=== PATIENT | female | born 1940 | race Caucasian/White ===

== ENCOUNTER 2016-10-25 10:45 | Outpatient (CLI) | payer MEDICARE ==
[2016-10-25 12:34] LABS: #Eosinphils 0.2 thou/uL (0.0-0.7); #Lymphocytes 0.8 thou/uL (1.20-3.40); #Monocytes 0.4 thou/uL (0.11-0.59); #Neutrophils 3.6 thou/uL (1.40-6.50); %Basophils 0.9 % (0.0-1.0); %Eosinophils 3.2 % (0.0-10.0); %Lymphocytes 16.3 % (21.0-51.0); %Monocytes 8.2 % (0.0-10.0); Hematocrit 34.4 % (36.0-47.0); Mean Platelet Volume 6.8 fL (7.4-10.4); Red Blood Cell (RBC) Count 3.39 mill/uL (4.20-5.40)
[2016-10-25 12:38] LABS: Bilirubin Negative (Negative); Blood, Urine Negative (Negative); Glucose, Urine (Dipstick) Negative (Negative); Ketone, Urine Negative (Negative); Nitrite Negative (Negative); Protein, Urine (Dipstick) Negative (Neg-Trace); Urobilinogen 0.2 mg/dL (0.2-1.0)
[2016-10-25 13:08] LABS: ALT (SGPT) 12 U/L (0-55); AST (SGOT) 14 U/L (5-34); Alkaline Phosphatase 100 U/L (40-150); Anion Gap 17 mmol/L (10-20); BUN (Urea Nitrogen) 33 mg/dL (9.8-20.1); Bilirubin, Total 0.4 mg/dL (0.2-1.2); Calc. Creatinine Clearance 0 mL/min (70-130); Calcium 9.4 mg/dL (7.8-10.44); Carbon Dioxide 24 mmol/L (23-31); Chloride 103 mmol/L (98-107); Estimated GFR-MDRD 52; Globulin 2.8 g/dL (2.4-3.5); LDL Cholesterol, Calculated 73 mg/dL; Protein, Total 6.6 g/dL (5.8-8.1)
== END 2016-10-25 10:46 ==
LOC: NAVSJIPCSP 10:45
PROVIDERS: ATTEND Internal Medicine
DX: C18.9 Malignant neoplasm of colon, unspecified (principal); E78.5 Hyperlipidemia, unspecified; E03.9 Hypothyroidism, unspecified; I10 Essential (primary) hypertension
CPT/HCPCS: 36415; 80053; 80061; 81003; 82378; 84443; 85025

== ENCOUNTER 2017-01-25 08:59 | Outpatient (CLI) | payer MEDICARE ==
--- NOTE | 2017-01-25 10:10 | RAD ---
THREE VIEWS OF THE RIGHT FOOT: COMPARISON: None. HISTORY: Arthritis and right foot pain. FINDINGS: Three views of the right foot show no evidence of acute fracture or dislocation. There may be a sma ll osseous erosion involving the distal metatarsal of the 4th toe. No focal soft tissue swelling is seen. IMPRESSION: Possible erosion involving the distal aspect of the 4th metatarsal. POS: [facility]
--- NOTE | 2017-01-25 10:10 | RAD ---
LEFT KNEE FOUR VIEWS: History: 76-year-old female with left knee pain and history of arthritis. Comparison: 02-04-13 FINDINGS: Tricompartment arthrosis and degenerative changes of the left knee joint without fracture or disloca tion. Stable from prior study 02-04-13. IMPRESSION: Degenerative and osteoarthrosis changes without fracture or dislocation, stable. POS: [facility]
== END 2017-01-25 09:00 | disposition home or self-care (01) ==
LOC: NAV RAD 08:59
PROVIDERS: ATTEND Internal Medicine
DX: M17.12 Unilateral primary osteoarthritis, left knee (principal)

== ENCOUNTER 2017-08-01 14:01 | Outpatient (CLI) | payer MEDICARE ==
--- NOTE | 2017-08-01 16:16 | ULT ---
BILATERAL CAROTID DUPLEX ULTRASOUND: HISTORY: Left carotid bruit. FINDINGS: There is a small amount of plaque formation in the left internal carotid artery. The peak systolic velocity in the right ICA measures 83 cm/s with an end-diastolic velocity of 20 cm/ s and a systolic ratio of 0.99. The peak systolic velocity in the left ICA measures 70 cm/s with an end-diastolic velocity of 17 cm/s and a systolic ratio of 0.92. Flow in both vertebral arteries remains antegrade. IMPRESSION: No evidence of hemodynamically significant stenosis. POS: [facility]
--- NOTE | 2017-08-01 16:58 | CT ---
ABDOMEN CT SCAN WITHOUT IV CONTRAST 08/01/17 HISTORY: 76-year-old female with history of colon cancer and radiation and chemotherapy with progressive liver enzymes. The lung bases are clear. The liver shows no definite metastatic disease although there is some sligh t heterogeneity of liver attenuation. No ductal dilatation. The gallbladder is upper range of normal size. There are some minimally enlarged but overall stable appearing parapancreatic lymph nodes, unch anged from 02/14/16. The pancreas, spleen, adrenal glands are unremarkable as evaluated without IV con trast. Small right renal cyst stable from prior study. No evidence of ascites. The pelvis was not uri luated on this study. No bowel obstruction. IMPRESSION: Limited noncontrast CT examination of the abdomen. No overt liver metastasis on this noncontrast stud y. Minimally enlarged but overall stable parapancreatic lymph nodes. Stable right renal cyst. POS: [facility]
== END 2017-08-01 14:02 | disposition home or self-care (01) ==
LOC: NAV CT 14:01
PROVIDERS: ATTEND Internal Medicine
DX: C18.9 Malignant neoplasm of colon, unspecified (principal); R74.8 Abnormal levels of other serum enzymes; R59.0 Localized enlarged lymph nodes; N28.1 Cyst of kidney, acquired
CPT/HCPCS: 74150; 93880

== ENCOUNTER 2018-05-31 10:17 | Outpatient (CLI) | payer MEDICARE ==
--- NOTE | 2018-05-31 11:20 | RAD ---
RADIOGRAPH LEFT HEEL 2 VIEWS: Date: 05/31/18 HISTORY: Nontraumatic left heel pain. FINDINGS: Boehler's angle is maintained. Calcaneal trabecular lines are preserved. There is a plantar calcaneal enthesophyte. Its distal tip is lucent and slightly indistinct. There is a cluster of small calcifications located a distance of approximately 1 cm superior to the p osterior edge of the calcaneus. IMPRESSION: 1. Plantar calcaneal enthesophyte with possible erosion of its tip. 2. Nonspecific small calcifications at distal Achilles tendon. 3. No fracture identified. POS: [facility]
== END 2018-05-31 10:18 | disposition home or self-care (01) ==
LOC: NAV RAD 10:17
PROVIDERS: ATTEND Nurse Practitioner Adult Health
DX: M79.672 Pain in left foot (principal); M65.862 Other synovitis and tenosynovitis, left lower leg

== ENCOUNTER 2018-09-19 12:42 | Emergency (ER) | payer MEDICARE ==
[2018-09-19] MEDS ORDERED: Morphine 4 MG/ML VIAL ONE (13:07)
[2018-09-19] MEDS ORDERED: Ondansetron PF 4 MG/2 ML Vial ONE (13:07)
[2018-09-19] MEDS ORDERED: Fentanyl 100 MCG/2 ML VIAL ONE (13:12)
--- NOTE | 2018-09-19 13:40 | RAD ---
TWO VIEWS LEFT HUMERUS: History: Fall with left humeral pain. FINDINGS: AP and oblique views of the left humerus demonstrate a transverse partially impacted fracture in the proximal left humeral neck. It is difficult to evaluate for angulation as the lateral view is not rickey quately visualized. IMPRESSION: Acute left proximal humeral fracture. POS: [facility]
== END 2018-09-19 14:15 | disposition home or self-care (01) ==
LOC: NAV ERS 12:42
DX: S42.202A Unspecified fracture of upper end of left humerus, initial encounter for closed fracture (principal); I10 Essential (primary) hypertension; E03.9 Hypothyroidism, unspecified; E78.5 Hyperlipidemia, unspecified; E11.9 Type 2 diabetes mellitus without complications; Z79.899 Other long term (current) drug therapy; Z79.82 Long term (current) use of aspirin; W19.XXXA Unspecified fall, initial encounter
CPT/HCPCS: 96374; 96375; J2270; J2405; J3010

== ENCOUNTER 2019-01-07 14:29 | Outpatient (CLI) | payer MEDICARE ==
--- NOTE | 2019-01-07 14:54 | RAD ---
Exam: XR Knee Rt 4 View STANDARD HISTORY: Right knee pain COMPARISON: None FINDINGS: Mild tricompartment osteophytosis is present. No significant joint space narrowing is appreciated. Th ere is evidence of a small suprapatellar joint effusion which may be physiologic in origin. No acute fracture, dislocation, or other acute osseous abnormality is identified. IMPRESSION: Mild osteoarthritis right knee.
== END 2019-01-07 14:30 | disposition home or self-care (01) ==
LOC: NAV RAD 14:29
PROVIDERS: ATTEND Internal Medicine
DX: M25.561 Pain in right knee (principal); M17.11 Unilateral primary osteoarthritis, right knee

== ENCOUNTER 2019-04-23 06:04 | Emergency (ER) | payer MEDICARE ==
--- NOTE | 2019-04-23 07:34 | RAD ---
Right knee 4 views: HISTORY: Right knee pain FINDINGS: Degenerative changes are present. No fracture, dislocation or bony destruction is identified.
== END 2019-04-23 07:33 | disposition home or self-care (01) ==
LOC: NAV ERS 06:04
DX: S83.91XA Sprain of unspecified site of right knee, initial encounter (principal); M17.11 Unilateral primary osteoarthritis, right knee; E11.9 Type 2 diabetes mellitus without complications; E03.9 Hypothyroidism, unspecified; D50.9 Iron deficiency anemia, unspecified; E78.5 Hyperlipidemia, unspecified; E78.00 Pure hypercholesterolemia, unspecified; I10 Essential (primary) hypertension; Z79.899 Other long term (current) drug therapy; Z79.82 Long term (current) use of aspirin; X58.XXXA Exposure to other specified factors, initial encounter

== ENCOUNTER 2020-02-28 11:57 | Emergency (ER) | payer MEDICARE ==
[2020-02-28] MEDS ORDERED: Acetaminophen/Codeine 30-300mg Tablet ONE (12:51)
== END 2020-02-28 13:01 | disposition home or self-care (01) ==
LOC: NAV ERS 11:57
DX: M54.41 Lumbago with sciatica, right side (principal); E11.9 Type 2 diabetes mellitus without complications; E03.9 Hypothyroidism, unspecified; D50.9 Iron deficiency anemia, unspecified; E78.5 Hyperlipidemia, unspecified; I10 Essential (primary) hypertension; Z79.899 Other long term (current) drug therapy; Z79.82 Long term (current) use of aspirin

== ENCOUNTER 2020-03-11 10:51 | Outpatient (CLI) | payer MEDICARE ==
--- NOTE | 2020-03-11 12:00 | CT ---
CT Lower Ext Rt WO Con History: Right-sided sciatica Comparison: None. Findings: Chronic insufficiency fracture of the right sacrum involving S1 and S2 and S3 within zone 1 . Peripheral sclerosis of healing. There is a degenerative disease of the pubic symphysis with narrowing and sclerosis as well as comple te obliteration of the central articular disc. Enthesopathic change of the gluteus insertion upon the posterior aspect of the femoral diaphysis. Prior partial colectomy of the sigmoid. No mass effect upon the sciatic nerve. Mild enthesopathic norbert nge of the hamstring tendons. There is mild sclerosis throughout the femoral epiphysis, degenerative in nature. Obturator ring is i ntact. Impression: 1. Healing chronic right S1, S2 and S3 sacral insufficiency fractures. 2. No acute femoral head or neck fracture. 3. No significant mass effect upon the sciatic nerve.
--- NOTE | 2020-03-11 13:12 | CT ---
CT Lumbar Spine WO Con History: Pain Comparison: None. Findings: No hydronephrosis. The aorta is tortuous. Moderate dextro scoliosis lumbar spine. Incomplete evaluation of bilateral sacral insufficiency fractures involving zone 1 with peripheral sc lerosis suggesting healing. No acute displaced fracture is appreciated of the lumbar spine. Scoliotic curvature of the lumbar spine is approximately 25 degrees. No transverse process fracture. Limited level by level evaluation is as follows: L1/L2: Complete degenerative disc space height loss. Large circumferential disc bulge. Spinal canal m easures approximately 1 cm. 3 mm retrolisthesis. Moderate bilateral neural foraminal narrowing. L2/L3: High-grade degenerative disc space height loss greatest on the left-sided disc due to the scol iotic curvature. 1 to 2 mm retrolisthesis. Mild right and moderate to severe left neural foraminal narrowing. L3/L4: Moderate left and mild right degenerative disc space height loss. Small circumferential disc b ulge. Moderate facet arthrosis. Moderate left and mild right neural foraminal narrowing. L4/L5: Severe facet arthropathy on the right and moderate to severe on the left. Large disc osteophyt e complex. 2 mm retrolisthesis. Posterior displacement of disc material as an adaptation to subluxation. Moderate to severe right and moderate left neural foraminal narrowing. Spinal canal is n arrowed to approximately 5 mm. L5/S1: Severe facet arthropathy on the right and moderate to severe left. 2 mm retrolisthesis. [employer] ior displacement disc material as an adaptation to subluxation. Moderate to severe right and moderate left neural foraminal narrowing. Impression: 1. Multilevel high-grade spondylosis as described. 2. Bilateral insufficiency fractures of the sacrum involving zone 1 incompletely evaluated.
== END 2020-03-11 10:52 | disposition home or self-care (01) ==
LOC: NAV CT 10:51
PROVIDERS: ATTEND Internal Medicine
DX: M25.551 Pain in right hip (principal); M47.816 Spondylosis without myelopathy or radiculopathy, lumbar region; S32.119A Unspecified Zone I fracture of sacrum, initial encounter for closed fracture
CPT/HCPCS: 72131

== ENCOUNTER 2021-01-26 19:04 | Emergency (ER) | payer MEDICARE ==
[2021-01-26] MEDS ORDERED: Sodium Chloride 0.9% 500 ML ONE ×2 (19:48→20:32)
[2021-01-26 19:57] LABS: #Basophils 0.1 thou/uL (0.0-0.2); #Eosinphils 0.2 thou/uL (0.0-0.7); #Lymphocytes 1.3 thou/uL (1.20-3.40); #Monocytes 0.6 thou/uL (0.11-0.59); #Neutrophils 4.7 thou/uL (1.40-6.50); %Eosinophils 2.2 % (0.0-10.0); %Lymphocytes 19.2 % (21.0-51.0); %Monocytes 8.5 % (0.0-10.0); %Neutrophils 69.1 % (42.0-75.0); Hemoglobin 11.9 g/dL (12.0-16.0); Mean Corpuscular HGB CONC 29.2 g/dL (32.0-36.0); Mean Corpuscular Hemoglobin 27.6 pg (27.0-31.0); Mean Corpuscular Volume 94.6 fL (78.0-98.0); Mean Platelet Volume 8.2 fL (7.4-10.4); Platelet Count 274 thou/uL (130-400); RBC Distribution Width 14.3 % (11.5-14.5); Red Blood Cell (RBC) Count 4.31 mill/uL (4.20-5.40); White Blood Cell (WBC) Count 6.9 thou/uL (4.8-10.8)
[2021-01-26 20:14] LABS: ALT (SGPT) 22 U/L (8-55); AST (SGOT) 24 U/L (5-34); Albumin 3.9 g/dL (3.4-4.8); Alkaline Phosphatase 179 U/L (40-110); Anion Gap 16 mmol/L (10-20); BUN (Urea Nitrogen) 29 mg/dL (9.8-20.1); Bilirubin, Total 0.3 mg/dL (0.2-1.2); CK (CPK) 30 U/L (29-168); Calc. Creatinine Clearance 0 mL/min (70-130); Calcium 9.7 mg/dL (7.8-10.44); Carbon Dioxide 28 mmol/L (23-31); Chloride 98 mmol/L (98-107); Globulin 3.5 g/dL (2.4-3.5); Glucose 204 mg/dL (83-110); Magnesium 1.8 mg/dL (1.6-2.6); Protein, Total 7.4 g/dL (5.8-8.1); Sodium 138 mmol/L (136-145)
[2021-01-26 20:24] LABS: Platelet Morphology Comment Appears Adequate; RBC Morphology Normal
[2021-01-26 20:59] LABS: Bilirubin Negative (Negative); Blood, Urine Negative (Negative); Clarity Clear (Clear); Glucose, Urine (Dipstick) Negative (Negative); Ketone, Urine Negative (Negative); Leukocyte Negative (Negative); Nitrite Negative (Negative); Protein, Urine (Dipstick) Negative (Neg-Trace); Urobilinogen 0.2 mg/dL (Less than 2); pH, Urine 6.5 (5.0-9.0)
== END 2021-01-26 21:17 | disposition home or self-care (01) ==
LOC: NAV ERS 19:04
DX: E86.0 Dehydration (principal); E11.9 Type 2 diabetes mellitus without complications; E03.9 Hypothyroidism, unspecified; D50.9 Iron deficiency anemia, unspecified; E78.5 Hyperlipidemia, unspecified; E78.00 Pure hypercholesterolemia, unspecified; I10 Essential (primary) hypertension; Z79.82 Long term (current) use of aspirin; Z79.899 Other long term (current) drug therapy
CPT/HCPCS: 71046; 80053; 81003; 82550; 83735; 83880; 84484; 85025; 93005; J7030

== ENCOUNTER 2021-07-29 12:26 | Emergency (ER) | payer MEDICARE ==
[2021-07-29 13:16] LABS: #Basophils 0.1 thou/uL (0.0-0.2); #Lymphocytes 0.7 thou/uL (1.20-3.40); #Monocytes 1.1 thou/uL (0.11-0.59); #Neutrophils 12.7 thou/uL (1.40-6.50); %Basophils 0.9 % (0.0-1.0); %Eosinophils 0.3 % (0.0-10.0); %Lymphocytes 4.7 % (21.0-51.0); %Monocytes 7.5 % (0.0-10.0); %Neutrophils 86.6 % (42.0-75.0); Hemoglobin 13.2 g/dL (12.0-16.0); Mean Corpuscular Hemoglobin 31.7 pg (27.0-31.0); Mean Platelet Volume 8.6 fL (7.4-10.4); Platelet Count 207 thou/uL (130-400); RBC Distribution Width 13.2 % (11.5-14.5); Red Blood Cell (RBC) Count 4.16 mill/uL (4.20-5.40); White Blood Cell (WBC) Count 14.6 thou/uL (4.8-10.8)
[2021-07-29 13:39] LABS: ALT (SGPT) 34 U/L (8-55); AST (SGOT) 41 U/L (5-34); Albumin 3.4 g/dL (3.4-4.8); Alkaline Phosphatase 124 U/L (40-110); Anion Gap 11 mmol/L (10-20); BUN (Urea Nitrogen) 24 mg/dL (9.8-20.1); Bilirubin, Total 0.5 mg/dL (0.2-1.2); Calc. Creatinine Clearance 0 mL/min (70-130); Calcium 9.2 mg/dL (7.8-10.44); Carbon Dioxide 26 mmol/L (23-31); Chloride 107 mmol/L (98-107); Globulin 2.8 g/dL (2.4-3.5); Glucose 223 mg/dL (83-110); Lipase 18 U/L (8-78); Potassium 4.6 mmol/L (3.5-5.1); Protein, Total 6.2 g/dL (5.8-8.1); Sodium 139 mmol/L (136-145)
[2021-07-29 14:02] LABS: Bilirubin Small (Negative); Blood, Urine Negative (Negative); Glucose, Urine (Dipstick) Negative (Negative); Ketone, Urine 15 mg/dL (Negative); Leukocyte Negative (Negative); Nitrite Negative (Negative); Protein, Urine (Dipstick) 30 mg/dL (Neg-Trace); Specific Gravity, Urine 1.015 (1.005-1.030); pH, Urine 5.5 (5.0-9.0)
[2021-07-29 14:09] LABS: Clarity SL HAZY (Clear)
[2021-07-29 14:10] LABS: Squamous Epithelial 0-3 HPF (0-3); WBC/HPF 0-3 HPF (0-3)
== END 2021-07-29 15:40 | disposition home or self-care (01) ==
LOC: NAV ERS 12:26
DX: E86.9 Volume depletion, unspecified (principal); I95.9 Hypotension, unspecified; E11.65 Type 2 diabetes mellitus with hyperglycemia; E03.9 Hypothyroidism, unspecified; D50.9 Iron deficiency anemia, unspecified; E78.5 Hyperlipidemia, unspecified; I10 Essential (primary) hypertension; Z79.899 Other long term (current) drug therapy; Z79.82 Long term (current) use of aspirin
CPT/HCPCS: 51701; 80053; 81003; 81015; 82274; 83630; 83690; 85025; 87045; 87046; 87077; 87081; 87324; 87427; 87449

== ENCOUNTER 2022-03-21 11:12 | Emergency (ER) | payer MEDICARE ==
[2022-03-21 11:33] LABS: Bilirubin Negative (Negative); Blood, Urine Negative (Negative); Clarity Clear (Clear); Glucose, Urine (Dipstick) Negative (Negative); Ketone, Urine Negative (Negative); Leukocyte Negative (Negative); Nitrite Negative (Negative); Protein, Urine (Dipstick) Negative (Neg-Trace); Urobilinogen 0.2 mg/dL (Less than 2); pH, Urine 5.5 (5.0-9.0)
[2022-03-21 11:44] LABS: #Basophils 0.1 thou/uL (0.0-0.2); #Eosinphils 0.1 thou/uL (0.0-0.7); #Lymphocytes 0.9 thou/uL (1.20-3.40); #Monocytes 0.4 thou/uL (0.11-0.59); #Neutrophils 2.5 thou/uL (1.40-6.50); %Basophils 1.3 % (0.0-1.0); %Eosinophils 2.2 % (0.0-10.0); %Lymphocytes 22.3 % (21.0-51.0); %Monocytes 10.2 % (0.0-10.0); Hemoglobin 11.2 g/dL (12.0-16.0); Mean Corpuscular HGB CONC 29.7 g/dL (32.0-36.0); Mean Corpuscular Hemoglobin 30.5 pg (27.0-31.0); Mean Platelet Volume 8.9 fL (7.4-10.4); Platelet Count 170 thou/uL (130-400); RBC Distribution Width 13.7 % (11.5-14.5); Red Blood Cell (RBC) Count 3.68 mill/uL (4.20-5.40); White Blood Cell (WBC) Count 3.9 thou/uL (4.8-10.8)
[2022-03-21 11:56] LABS: ALT (SGPT) 34 U/L (8-55); AST (SGOT) 28 U/L (5-34); Albumin 3.7 g/dL (3.4-4.8); Alkaline Phosphatase 126 U/L (40-110); Anion Gap 15 mmol/L (10-20); BUN (Urea Nitrogen) 18 mg/dL (9.8-20.1); Bilirubin, Total 0.3 mg/dL (0.2-1.2); Calc. Creatinine Clearance 0 mL/min (70-130); Calcium 9.1 mg/dL (7.8-10.44); Carbon Dioxide 24 mmol/L (23-31); Chloride 106 mmol/L (98-107); Estimated GFR 83; Globulin 2.9 g/dL (2.4-3.5); Glucose 133 mg/dL (83-110); Magnesium 1.8 mg/dL (1.6-2.6); Potassium 4.3 mmol/L (3.5-5.1); Protein, Total 6.6 g/dL (5.8-8.1); Sodium 141 mmol/L (136-145)
== END 2022-03-21 13:39 | disposition home or self-care (01) ==
LOC: NAV ERS 11:12
DX: E86.0 Dehydration (principal); E11.9 Type 2 diabetes mellitus without complications; E03.9 Hypothyroidism, unspecified; E78.5 Hyperlipidemia, unspecified; I10 Essential (primary) hypertension; Z79.899 Other long term (current) drug therapy
CPT/HCPCS: 71045; 80053; 81003; 83735; 84484; 85025; 93005; 94760